=== PATIENT | female | born 1995 | race Caucasian/White ===

== ENCOUNTER 2017-12-31 14:56 | Emergency (ER) | payer OTHER, MEDICAID, SELFPAY ==
[2017-12-31 15:08] VITALS: BP 115/71; PULSE 104; RESP 16; TEMP 36.5; O2SAT 99; BMI 21.7
--- NOTE | 2017-12-31 17:18 | ED_ITS ---
HPI - URI/Sore Throat <Rosanna Barker PA-C - Last Filed: 12/31/17 22:39> General Chief Complaint: Upper Respiratory Symptoms Stated Complaint: COLD, SORE THROAT Time Seen by Provider: 12/31/17 16:22 Source: patient Mode of arrival: ambulatory Limitations: no limitations History of Present Illness HPI Narrative: Melanie is a 22-year-old female who comes into ED today due to 2 -3 day history of sore throat, painful to swallow. She also has chest congestion, wet cough, and generalized sinus pressure. She has not had fever. She has not had localized sinus pain or ear ache. No dyspnea or chest pain. No wheezing. Her infant daughter has been ill as well, and patient is concerned about strep throat. No recent travel. Related Data Allergies Allergy/AdvReac Type Severity Reaction Status Date / Time penicillin G [PENICILLIN G] Allergy Unknown Verified 12/31/17 15:08 Sulfa (Sulfonamide Allergy Unknown Verified 12/31/17 15:08 Antibiotics) [SULFA (SULFONAMIDE ANTIBIOTICS)] Review of Systems <Rosanna Barker PA-C - Last Filed: 12/31/17 22:39> Review of Systems All systems reviewed & are unremarkable except as noted in HPI and below Exam <Rosanna Barker PA-C - Last Filed: 12/31/17 22:39> Initial Vital Signs Initial Vital Signs: Vital Signs Temperature 97.7 F 12/31/17 15:08 Pulse Rate 104 H 12/31/17 15:08 Respiratory Rate 16 12/31/17 15:08 Blood Pressure 115/71 12/31/17 15:08 Pulse Oximetry 99 12/31/17 15:08 GENERAL APPEARANCE: Patient sitting comfortably, in no distress. HEAD: Mild generalized sinus tender EYES: PERRL, EOMI. EARS: Normal auditory canals, TMS intact with normal light reflexes. ORAL CAVITY: Normal oropharynx. THROAT: Mild erythema, no exudate NECK/THYROID: Neck supple, full range of motion, no cervical lymphadenopathy. LUNGS: Clear to auscultation bilaterally, occasional cough on exam. HEART: RRR without murmur, nl S1, S2, no S3 or S4. <Clifton Burris MD - Last Filed: 01/01/18 18:18> Initial Vital Signs Initial Vital Signs: Vital Signs Temperature 97.7 F 12/31/17 15:08 Pulse Rate 104 H 12/31/17 15:08 Respiratory Rate 16 12/31/17 15:08 Blood Pressure 115/71 12/31/17 15:08 Pulse Oximetry 99 12/31/17 15:08 Course <Rosanna Barker PA-C - Last Filed: 12/31/17 22:39> Orders Ordered: Discontinued Medications Acetaminophen (Tylenol) 650 mg PO NOW ONE Stop: 12/31/17 17:57 Last Admin: 12/31/17 18:17 Dose: 650 mg Ibuprofen (Advil) 800 mg PO NOW ONE Stop: 12/31/17 18:56 Last Admin: 12/31/17 19:03 Dose: 800 mg Lidocaine HCl (Viscous Lidocaine 2%) 15 ml PO NOW ONE Stop: 12/31/17 17:57 Last Admin: 12/31/17 18:17 Dose: 15 ml Vital Signs - 8 hr 12/31/17 15:08 12/31/17 17:30 12/31/17 20:49 Temperature 97.7 F Pulse Rate 104 H 87 102 H Respiratory Rate 16 16 18 Blood Pressure 115/71 Blood Pressure [Right Arm] 100/55 L 112/80 Pulse Oximetry 99 99 98 <Clifton Burris MD - Last Filed: 01/01/18 18:18> Orders Ordered: Discontinued Medications Acetaminophen (Tylenol) 650 mg PO NOW ONE Stop: 12/31/17 17:57 Last Admin: 12/31/17 18:17 Dose: 650 mg Ibuprofen (Advil) 800 mg PO NOW ONE Stop: 12/31/17 18:56 Last Admin: 12/31/17 19:03 Dose: 800 mg Lidocaine HCl (Viscous Lidocaine 2%) 15 ml PO NOW ONE Stop: 12/31/17 17:57 Last Admin: 12/31/17 18:17 Dose: 15 ml Vital Signs - 8 hr 12/31/17 15:08 12/31/17 17:30 12/31/17 20:49 Temperature 97.7 F Pulse Rate 104 H 87 102 H Respiratory Rate 16 16 18 Blood Pressure 115/71 Blood Pressure [Right Arm] 100/55 L 112/80 Pulse Oximetry 99 99 98 MDM - URI/Sore Throat <Rosanna Barker PA-C - Last Filed: 12/31/17 22:39> Lab Data Rapid strep test negative Discharge Plan Departure Patient Disposition: Home, Self-Care Clinical Impression: Upper respiratory infection Discharge Date/Time: 12/31/17 20:40 Interventions: ED Discharge Assessment Last Done: 12/31/17 20:40 Instructions: DI for Viral Upper Respiratory Infection -- Adult Activity Restrictions/Additional Instructions: Please continue to take ibuprofen for your sore throat since this seems to be helping much more than Tylenol. This is safe when . Your infection is most likely due to a virus, and typically these take about 10 days or so to fully resolved. You should see your PCP if you are not improving, or if you are feeling worse, and of course follow up here as we talked about if any acute symptoms. Referrals: Shellie Degroot MD [Primary Care Provider] - <Clifton Burris MD - Last Filed: 01/01/18 18:18> Cosign ED Attending Cheliature Attestation: I was available in the emergency department to answer questions and assist if needed. I agree with the document content and management plan.
[2017-12-31 17:30] VITALS: BP 100/55; PULSE 87; RESP 16; O2SAT 99
[2017-12-31] MEDS: LIDOCAINE VISCOUS 2% 15 ML SOLUTION PO (18:17)
[2017-12-31] MEDS: ACETAMINOPHEN 325 MG TABLET 650 MG PO (18:17)
[2017-12-31] MEDS: IBUPROFEN 400 MG TABLET 800 MG PO (19:03)
--- NOTE | 2017-12-31 19:26 | PC.NURSE ---
Intruduced myself and explained to mom the importance of . Mom receptive and friendly, no further needs at present.
[2017-12-31 20:49] VITALS: BP 112/80; PULSE 102; RESP 18; O2SAT 98
== END 2017-12-31 20:40 | disposition home or self-care (01) ==
PROVIDERS: Emergency Provider Internal Medicine; Family Provider Family Medicine; PCP Family Medicine
DX: J06.9 Acute upper respiratory infection, unspecified (principal)
CPT/HCPCS: 87880; 99283

== ENCOUNTER 2018-11-14 07:28 | Emergency (ER) | payer OTHER, MEDICAID, SELFPAY ==
[2018-11-14 07:44] VITALS: BP 124/71; PULSE 97; RESP 16; TEMP 36.4; O2SAT 100
--- NOTE | 2018-11-14 09:12 | ED.URI ---
HPI - URI/Sore Throat General Chief Complaint: Nasal Problem Stated Complaint: Face hurts Time Seen by Provider: 11/14/18 09:05 Source: patient Mode of arrival: ambulatory Limitations: no limitations History of Present Illness HPI Narrative: Patient is a 23-year-old female who presents with upper respiratory like symptoms ongoing for a week she has had some nasal congestion but worsening facial pain over last 2 days. A total of 10 days of symptoms. She does not know if she has had fever. She took ibuprofen yesterday without any relief. She has significant pressure on her face on her teeth radiating to her ear. No sore throat. No productive cough. MD Complaint: nasal congestion and sinus pain Onset (ago): day(s) (10) Duration: constant and progressively worsening Relieving factors: nothing Related Data Previous Rx's Medication Instructions Recorded doxycycline hyclate 100 mg PO BID #14 cap 11/14/18 Allergies Allergy/AdvReac Type Severity Reaction Status Date / Time penicillin G [PENICILLIN G] Allergy Unknown Verified 12/31/17 15:08 Sulfa (Sulfonamide Allergy Unknown Verified 12/31/17 15:08 Antibiotics) [SULFA (SULFONAMIDE ANTIBIOTICS)] Review of Systems Review of Systems ROS Unobtainable: All systems reviewed & are unremarkable except as noted in HPI and below Constitutional Denies chills, Denies fever(s), Denies lethargy and Denies weakness Eyes Denies change in vision, Denies eye discharge, Denies irritation and Denies loss of vision ENT Ears, Nose, Mouth, and Throat: Reports facial pain and Reports nasal congestion Cardiovascular Denies chest pain, Denies irregular heart rhythm, Denies lightheadedness, Denies palpitations, Denies dyspnea, Denies dyspnea on exertion and Denies orthopnea Respiratory Denies cough, Denies dyspnea, Denies dyspnea on exertion and Denies wheezing Gastrointestinal Gastrointestinal: Denies abdominal pain, Denies change in bowel habits, Denies diarrhea, Denies nausea and Denies vomiting Genitourinary Denies hematuria, Denies flank pain, Denies urinary incontinence and Denies urinary urgency Musculoskeletal Denies back pain, Denies muscle weakness, Denies numbness and Denies tingling Integumentary/Breasts Denies pruritus, Denies erythema, Denies rash and Denies wounds Neurologic Denies loss of vision, Denies numbness, Denies tingling and Denies weakness Endocrine Denies palpitations Allergic/Immunologic Denies wheezing [facility] Medical History ADHD (Acute) Social History Smoking Status: Current every day smoker Social History Smoking Status: Current every day smoker Exam Initial Vital Signs Initial Vital Signs: Vital Signs Temperature 97.5 F L 11/14/18 07:44 Pulse Rate 97 H 11/14/18 07:44 Respiratory Rate 16 11/14/18 07:44 Blood Pressure 124/71 11/14/18 07:44 Pulse Oximetry 100 11/14/18 07:44 GENERAL: Well-appearing, well-nourished and in no acute distress. HEENT: Head atraumatic,EOMI, pupils reactive, bilateral facial tenderness no small abscess CARDIOVASCULAR: Regular rate and rhythm without murmurs, rubs or gallops. RESPIRATORY: Breath sounds equal bilaterally, no wheezes rales or rhonchi. ABDOMEN: Soft, nontender. Normoactive bowel sounds all 4 quadrants. No guarding or rebound. EXTREMITIES: Normal range of motion, no clubbing or edema. Neurovascularly intact NEUROLOGICAL: Alert and oriented x4.Normal gait and speech. Cranial nerves II through XII grossly intact. SKIN: Warm, dry, no laceration, no petechiae, no rashes or lesions. Course Vital Signs - 8 hr 11/14/18 07:44 11/14/18 09:55 Temperature 97.5 F L Pulse Rate 97 H 91 H Respiratory Rate 16 17 Blood Pressure 124/71 118/76 Pulse Oximetry 100 98 MDM - URI/Sore Throat [facility] Narrative Medical decision making narrative: Patient has had symptoms of acute sinusitis for more than 10 days. Patient is allergic to penicillin and sulfa therefore doxycycline is prescribed. Discharge Plan Departure Patient Disposition: Home Clinical Impression: Sinusitis Qualifiers: Sinusitis location: maxillary Chronicity: acute Recurrence: non-recurrent Qualified Code(s): J01.00 - Acute maxillary sinusitis, unspecified Discharge Date/Time: 11/14/18 09:57 Interventions: ED Discharge Assessment Last Done: 11/14/18 09:55 Instructions: DI for Sinusitis Activity Restrictions/Additional Instructions: *You have been diagnosed with sinusitis *What to do: Increase fluid intake *Continue to take medications as directed Doxycycline 100 mg twice a day for 7 days *Follow up with your primary care provider in 2-3 days *Return to ER if you should have fever, worsening headache, worsening neck or any new, worsening or concerning symptoms Prescriptions: New doxycycline hyclate 100 mg capsule 100 mg PO BID Qty: 14 RF: 0 Referrals: Anuradha Lr ARNP [Primary Care Provider] -
--- NOTE | 2018-11-14 09:53 | PC.NURSE ---
Patient reports ten day history of sinus pain, congestion/drainage now with left face/mouth/teeth/cheek pain.
[2018-11-14 09:55] VITALS: BP 118/76; PULSE 91; RESP 17; O2SAT 98
== END 2018-11-14 09:57 | disposition home or self-care (01) ==
PROVIDERS: Emergency Provider Emergency Medicine; PCP Nurse Practitioner
DX: J01.00 Acute maxillary sinusitis, unspecified (principal)
CPT/HCPCS: 99282; 99283

== ENCOUNTER → 2019-04-14 19:17 | Outpatient (ROUT) | payer OTHER, MEDICAID, SELFPAY ==
[2019-04-14 21:09] LABS: Urine N gonorrhoeae NOT DETECTED
[2019-04-14 21:18] LABS: Urine Chlamydia NOT DETECTED
== END ==
PROVIDERS: PCP Nurse Practitioner; Visit Provider Obstetrics & Gynecology
DX: Z34.81 Encounter for supervision of other normal pregnancy, first trimester (principal); Z3A.09 9 weeks gestation of pregnancy
CPT/HCPCS: 87491; 87591

== ENCOUNTER → 2019-05-14 16:22 | Outpatient (CLI) | payer OTHER, MEDICAID, SELFPAY ==
[2019-05-14 17:24] LABS: Add Manual Diff / Slide Review NO; Basophils Absolute Auto 200 /uL (0-100); Basophils Percent Auto 1.2 % (0-2); Eosinophils Absolute Auto 100 /uL (0-450); Eosinophils Percent Auto 0.9 % (2-4); Hematocrit 37.3 % (36-46); Hemoglobin 12.7 g/dL (12.0-16.0); Lymphocytes Absolute Auto 2100 /uL (1100-4500); Lymphocytes Percent Auto 15.7 % (25-40); Mean Corpuscular Hemoglobin 30.6 PG (26-34); Monocytes Absolute Auto 1000 /uL (0-900); Monocytes Percent Auto 7.9 % (3-14); Neutrophils Absolute Auto 9800 /uL (1500-7000); Neutrophils Percent Auto 74.3 % (50-75); Platelet Count 254 X10^3/uL (150-400); Red Blood Cell Count 4.15 X10^6/uL (4.0-5.2); Red Cell Distribution Width 14.5 % (11.6-14.8); White Blood Cell Count 13.2 X10^3/uL (4.5-11.0)
[2019-05-14 18:05] LABS: Appearance Urine UA CLEAR; Bilirubin Urine UA NEGATIVE (NEGATIVE); Color Urine UA YELLOW; Glucose Urine UA NEGATIVE (Negative); Ketones Urine UA NEGATIVE (NEGATIVE); Leukocyte Esterase Urine UA NEGATIVE (NEGATIVE); Nitrite Urine UA NEGATIVE (Negative); Occult Blood Urine UA NEGATIVE (Negative); Protein Urine UA NEGATIVE (Negative); Urobilinogen Urine UA 0.2 E.U./dL (0.2)
[2019-05-14 18:19] LABS: pH Urine UA 5.5 (4.5-8.0)
[2019-05-14 18:46] LABS: Hepatitis B Surface Antigen NEGATIVE s/c (NEGATIVE)
[2019-05-14 19:07] LABS: HIV 1 & 2 Ab/Ag 4th Gen Combo NEGATIVE (NEGATIVE); Hep C Virus Ab w/Reflex Quant NEGATIVE s/c (NEGATIVE)
[2019-05-17 20:47] LABS: RPR Screen Nonreactive (Nonreactive)
== END ==
PROVIDERS: PCP Nurse Practitioner; Visit Provider Obstetrics & Gynecology
DX: Z34.81 Encounter for supervision of other normal pregnancy, first trimester (principal)
CPT/HCPCS: 36415; 80055; 81003; 86787; 86803; 86850; 86900; 86901; 87086; 87389

== ENCOUNTER → 2019-06-11 13:32 | Outpatient (CLI) | payer OTHER, MEDICAID, SELFPAY ==
[2019-06-15 21:04] LABS: AFP, Serum 41.7 ng/mL; Brief History NTD NG; Calc Gestational Age 17.1; Cigarette Smoker NO; Donated Egg NOT GIVEN; Donor Egg Age NOT GIVEN; Estriol, Free 1.21 ng/mL; Inhibin A, Dimeric 127 pg/mL; Maternal Weight 155 lbs; Number of Fetuses NOT GIVEN; Previous Pregnancy Down Syndro NOT GIVEN; hCG, MoM 0.77; hCG, Serum 20.8 IU/mL
== END ==
PROVIDERS: PCP Nurse Practitioner; Visit Provider Obstetrics & Gynecology
DX: Z34.02 Encounter for supervision of normal first pregnancy, second trimester (principal)
CPT/HCPCS: 36415; 82105; 82677; 84702; 86336

== ENCOUNTER → 2019-07-28 09:30 | Outpatient (CLI) | payer OTHER, MEDICAID, SELFPAY ==
--- NOTE | 2019-07-28 09:32 | DI.US.S_ITS ---
PROCEDURE: US OB >= 14 WEEKS FETUS INDICATIONS: ANATOMY OUTSIDE/PRIOR DATING DATA: Last menstrual period (LMP): 02/12/19. LMP-based estimated date of delivery (TESSY): 11/18/19. First dating scan (date and location): 03/26/19, by Dr. Salmeron. Estimated date of delivery (TESSY) from first dating scan: 11/13/19, by Dr. Salmeron. TECHNIQUE: Real-time scanning was performed of the fetus, with image documentation and biometric measurements. Endovaginal scanning: Not needed for this study COMPARISON: [facility], , OB >= 14 WEEKS FETUS, 04/14/2019, 16:41. FINDINGS: General: A single living intrauterine gestation is present. Presentation: Breech. Placenta: Placental position is posterior, without previa. Amniotic fluid index: 13.7 cm, normal range is 5-24 cm. heart rate: 157 beats per minute. Maternal cervical canal: 3.7 cm long. Normal lower limit is 2.5 cm. biometrics: Biparietal diameter: 6.0 cm, 24 weeks 2 days Head circumference: 23.3 cm, 25 weeks 2 days Abdominal circumference: 22.0 cm, 26 weeks 3 days Femur length: 4.6 cm, 25 weeks 3 days Estimated gestational age from initial scan: 24 weeks 4 days Composite gestational age from present scan: 25 weeks 4 days Estimated weight and percentile: 861 g, 91st percentile Measurement variability for biometric dating: +/- 7 days from 14 weeks to 15 weeks 6 days gestation, +/- 10 days from 16 weeks to 21 weeks 6 days gestation, +/- 2 weeks from 22 weeks to 27 weeks 6 days gestation, +/- 3 weeks for 28 weeks gestation or later. weight reference: 4500 g or EFW >90/95% is considered macrosomia or large for gestational age. EFW <10% is small for gestational age. EFW 5% or less is considered intra-uterine growth restriction. Anatomic survey: Neuro: Ventricles are non-dilated at less than 10 mm. Cisterna magna is normal at 3-11 mm. Cerebellum is normal in size and morphology. Nuchal skin fold: Normal at less than 6 mm between 14-21 weeks gestational age. Face: Nose and lips, facial profile are normal. Spine: No evidence for spina bifida. Heart: 4-chambered heart is present, with normal ventricular outflow tracts. Diaphragm: Diaphragm is intact. Stomach: Left-sided stomach is present. Kidneys: No hydronephrosis. Normal is less than 5 mm in 2nd trimester, less than 7 mm in 3rd trimester. Cord: 3-vessel cord has orthotopic insertion. Bladder: Normal in size. Extremities: All 4 extremities identified. IMPRESSION: Breech presentation, no significant anomaly found, appropriate interval growth. The delivery date is projected to be centered on 11/13/19 based on the first OB ultrasound performed by Dr. Salmeron. Dictated by: Reg Carroll M.D. on 07/28/2019 at 12:09 Approved by: Reg Carroll M.D. on 07/28/2019 at 12:12
== END ==
PROVIDERS: PCP Nurse Practitioner; Visit Provider Obstetrics & Gynecology
DX: Z36.89 Encounter for other specified antenatal screening (principal); Z3A.25 25 weeks gestation of pregnancy
CPT/HCPCS: 76811

== ENCOUNTER 2019-08-26 14:35 | Outpatient (CLI) | payer OTHER, MEDICAID, SELFPAY | END 2019-08-26 16:05 | disposition home or self-care (01) | LOC: LABOR 16:05 → OB 08-27 08:44 | PROVIDERS: PCP Nurse Practitioner; Referring Provider Obstetrics & Gynecology; Visit Provider Obstetrics & Gynecology | DX: O42.90 Premature rupture of membranes, unspecified as to length of time between rupture and onset of labor, unspecified weeks of gestation (principal); O26.23 Pregnancy care for patient with recurrent pregnancy loss, third trimester; R10.2 Pelvic and perineal pain; Z3A.28 28 weeks gestation of pregnancy | CPT/HCPCS: 59025; 84112; G0378; G0379 ==

== ENCOUNTER 2019-09-01 14:44 | Outpatient (CLI) | payer BC, OTHER, MEDICAID, SELFPAY ==
--- NOTE | 2019-09-01 21:23 | PM.OBTRLD ---
Visit Information Visit Information Date of evaluation: 09/01/19 Primary OB Provider: Cindy Reyes Reason for Evaluation: Yes non-stress test Comments/Additional reasons for admission: Patient is a @28+6 presenting for eval from clinic for elevated FHR to 170s in setting of movement, to confirm prolonge accels vs. tachycardia. Otherwise feeling well with no OB complaints. PFSH Surgical History (Updated 04/14/19 @ 17:10 by Cindy Reyes MD) H/O umbilical hernia repair (Acute) History of appendectomy (Acute) Family History (Updated 04/27/19 @ 11:58 by Jade Shepherd RN) Mother Hypertension Kidney disease Stomach ulcer Sister Hyperthyroidism Hypertension Grandmother Cancer Kidney disease Father Liver disease Family/Other Depression Bipolar 1 disorder Social History Smoking Status: Current every day smoker Evaluation Evaluation Baseline heart rate: 140 Variability: Average (6-10) monitor accelerations: Present monitor decelerations: Absent Diagnosis, Plan/Disposition Plan/Disposition Plan: Cat 1 reactive NST, patient discharged home with precautions. OB Disposition: home
== END 2019-09-01 15:30 | disposition home or self-care (01) ==
LOC: LABOR 15:32 → OB 09-02 11:27
PROVIDERS: PCP Nurse Practitioner; Referring Provider Obstetrics & Gynecology; Visit Provider Obstetrics & Gynecology
DX: O36.8330 Maternal care for abnormalities of the fetal heart rate or rhythm, third trimester, not applicable or unspecified (principal); O26.23 Pregnancy care for patient with recurrent pregnancy loss, third trimester; Z3A.28 28 weeks gestation of pregnancy
CPT/HCPCS: 59025; G0378; G0379

== ENCOUNTER → 2019-09-15 15:27 | Outpatient (CLI) | payer BC, OTHER, MEDICAID, SELFPAY ==
[2019-09-15 16:47] LABS: Hematocrit 33.1 % (36-46); Hemoglobin 11.2 g/dL (12.0-16.0)
[2019-09-15 17:25] LABS: GTT (PREG) 1 Hour PP 50gm Dose 93 mg/dL (76-139)
[2019-09-15 18:50] LABS: Influenza A - CEPHEID Flu A NEGATIVE (NEGATIVE); Influenza B - CEPHEID Flu B NEGATIVE (NEGATIVE)
[2019-09-22 13:36] LABS: COVID19 Sendout Not Detected (Not Detected)
== END ==
PROVIDERS: Nurse Practitioner; PCP Nurse Practitioner; Referring Provider Obstetrics & Gynecology; Visit Provider Obstetrics & Gynecology
DX: Z34.82 Encounter for supervision of other normal pregnancy, second trimester (principal); R68.89 Other general symptoms and signs; Z3A.26 26 weeks gestation of pregnancy
CPT/HCPCS: 36415; 82950; 85014; 85018; 87502; 87635

== ENCOUNTER → 2019-10-20 11:45 | Outpatient (CLI) | payer OTHER, MEDICAID, SELFPAY ==
[2019-10-21 11:08] LABS: Strep Grp B PCR NEG for Grp B Strep
== END ==
PROVIDERS: PCP Nurse Practitioner; Visit Provider Obstetrics & Gynecology
DX: Z34.03 Encounter for supervision of normal first pregnancy, third trimester (principal); Z3A.35 35 weeks gestation of pregnancy
CPT/HCPCS: 87653

== ENCOUNTER → 2019-10-20 12:00 | Outpatient (CLI) | payer OTHER, MEDICAID, SELFPAY ==
[2019-10-20 13:13] LABS: Add Manual Diff / Slide Review NO; Basophils Absolute Auto 100 /uL (0-100); Basophils Percent Auto 0.8 % (0-2); Eosinophils Absolute Auto 100 /uL (0-450); Eosinophils Percent Auto 0.8 % (2-4); Lymphocytes Absolute Auto 1800 /uL (1100-4500); Lymphocytes Percent Auto 13.3 % (25-40); Mean Corpuscular HGB Conc 34.2 % (30-36); Mean Corpuscular Hemoglobin 31.5 PG (26-34); Monocytes Absolute Auto 1100 /uL (0-900); Monocytes Percent Auto 8.3 % (3-14); Neutrophils Absolute Auto 10200 /uL (1500-7000); Neutrophils Percent Auto 76.8 % (50-75); Platelet Count 203 X10^3/uL (150-400); Red Cell Distribution Width 13.6 % (11.6-14.8); White Blood Cell Count 13.3 X10^3/uL (4.5-11.0)
[2019-10-20 13:20] LABS: Aspartate Aminotransferase 34 IU/L (14-36); BUN Creatinine Ratio 10.9 (6-22); Blood Urea Nitrogen 5 mg/dL (7-17); Estimated Glomerular Filt Rate > 60.0 mL/min (>60); Uric Acid 4.4 mg/dL (2.5-6.2)
[2019-10-20 15:55] LABS: Creatinine Urine Random 90.6 mg/dL; Protein (Total) Urine Random 10 mg/dL (0-12); Protein Creatinine Ratio Urine 0.11 GRAM/24H
== END ==
PROVIDERS: PCP Nurse Practitioner; Referring Provider Obstetrics & Gynecology; Visit Provider Obstetrics & Gynecology
DX: Z34.03 Encounter for supervision of normal first pregnancy, third trimester (principal); Z3A.35 35 weeks gestation of pregnancy
CPT/HCPCS: 36415; 82570; 84156; 84450; 84550; 85025; 87653

== ENCOUNTER 2019-11-17 01:30 | Inpatient (IN) | payer OTHER, MEDICAID, SELFPAY ==
[2019-11-17] MEDS: LACTATED RINGERS 1,000 ML 100 ML IV ×2 (02:15→04:15)
[2019-11-17] MEDS: fentaNYL 100 MCG/2 ML INJ 50 MCG IV ×2 (02:15→02:35)
[2019-11-17 02:16] VITALS: BP 111/77
[2019-11-17 02:23] LABS: Add Manual Diff / Slide Review NO; Basophils Absolute Auto 100 /uL (0-100); Basophils Percent Auto 0.6 % (0-2); Eosinophils Absolute Auto 200 /uL (0-450); Eosinophils Percent Auto 1.1 % (2-4); Hemoglobin 12.7 g/dL (12.0-16.0); Lymphocytes Absolute Auto 2400 /uL (1100-4500); Lymphocytes Percent Auto 15.8 % (25-40); Mean Corpuscular HGB Conc 33.3 % (30-36); Mean Corpuscular Hemoglobin 30.7 PG (26-34); Mean Corpuscular Volume 92.3 fL (80-100); Monocytes Absolute Auto 1400 /uL (0-900); Monocytes Percent Auto 9.1 % (3-14); Neutrophils Absolute Auto 11100 /uL (1500-7000); Neutrophils Percent Auto 73.4 % (50-75); Platelet Count 195 X10^3/uL (150-400); Red Blood Cell Count 4.12 X10^6/uL (4.0-5.2); Red Cell Distribution Width 14.4 % (11.6-14.8); White Blood Cell Count 15.1 X10^3/uL (4.5-11.0)
[2019-11-17 03:34] LABS: COVID19 -Nasal RAPID Negative (Negative)
--- NOTE | 2019-11-17 07:25 | P.HPOB_ITS ---
OB HPI Date/Time Date of admission: 11/17/19 Date Patient Seen: 11/17/19 Time Patient Seen: 07:20 History of Present Condition Chief complaint: evaluation of labor : 4 Para: 1 Estimated Date of Delivery: 11/18/19 Estimated Gestational Age (weeks): 39 Narrative: Melanie Villasenor is a 24 year old @39+6 admitted in early labor and making spontaneous change. She reports no VB or LOF, reports baby was moving well, and denies BEASLEY, visual changes, SOB, fevers, chills, or any other complaints at admission. She has had an uncomplicated , though there was early concern for posterior placenta previa that resolved in the second trimester. She has a history of 41 week and is proven to 8#4, with no other complications during that labor and delivery. She has a history of early SAB and 13 week IAB prior to that delivery, both of which were uncomplicated. Her surgical history is significant for appendectomy. She denies any other contributory medical, carbon rod inserter, or family history. History of Present care: good care Dating criteria: LMP confirmed by 1st trimester US Ultrasounds: normal 1st trimester US and normal mid trimester US Preadmission Labs Blood type: A (+) positive -: Antibody screen: negative, GBS status: negative, HBsAG: negative, HIV: negative and RPR/VDLR: negative -: Chlamydia screen: not detected and Gonorrhea screen: not detected -: Rubella: immune and Varicella: immune Quad screen: Normal 1 hr GTT: 93 Prior (ies) History: 07/14: 8 week SAB 07/16: 13 week IAB 08/2017: , 41 weeks, 8#4, female, otherwise uncomplicated Evaluation Evaluation Baseline heart rate: 135 Variability: Moderate (11-25) monitor accelerations: Present monitor decelerations: Absent Category of Tracing: I Cervical dilation (cm): 7 Cervical effacement (%): 100 station: -1 Laboratory results: Laboratory Tests 11/17/19 11/17/19 11/17/19 01:55 01:55 02:30 WBC 15.1 H RBC 4.12 Hgb 12.7 Hct 38.0 MCV 92.3 MCH 30.7 MCHC 33.3 RDW 14.4 Plt Count 195 Neut % (Auto) 73.4 Lymph % (Auto) 15.8 L [place] % (Auto) 9.1 Eos % (Auto) 1.1 L Baso % (Auto) 0.6 Neut # (Auto) 19226 H Lymph # (Auto) 2400 [place] # (Auto) 1400 H Eos # (Auto) 200 Baso # (Auto) 100 COVID-19 PCR Negative Blood Type A Positive Antibody Screen Negative PFSH Medical History ADHD (Acute) Anxiety (Acute) Bipolar 1 disorder (Acute) Depression (Acute) Eczema (Acute) Hx of migraines (Acute) Miscarriage (Acute) PTSD (post-traumatic stress disorder) (Acute) Smoking (Acute) Stomach ulcer (Acute) Vaginal delivery (Acute) Surgical History H/O umbilical hernia repair (Acute) History of appendectomy (Acute) Family History Mother Hypertension Kidney disease Stomach ulcer Sister Hyperthyroidism Hypertension Grandmother Cancer Kidney disease Father Liver disease Family/Other Depression Bipolar 1 disorder Social History Smoking Status: Former smoker Meds Home Medications and Allergies Home Medications Medication Instructions Recorded Confirmed Type prenat.vits,jonny,[id number] 1 tab PO DAILY 04/08/19 10/20/19 History Allergies Allergy/AdvReac Type Severity Reaction Status Date / Time penicillin G [PENICILLIN G] Allergy Severe Anaphylaxis Verified 10/20/19 11:36 Sulfa (Sulfonamide Allergy Severe Anaphylaxis Verified 10/20/19 11:36 Antibiotics) [SULFA (SULFONAMIDE ANTIBIOTICS)] Review of Systems Constitutional Constitutional: Reports system reviewed and no additional complaints, except as documented Cardiovascular Cardiovascular: Reports system reviewed; no additional complaints, except as documented Gastrointestinal Gastrointestinal: Reports system reviewed and no additional complaints, except as documented Genitourinary Genitourinary: Reports system reviewed and no additional complaints, except as documented Musculoskeletal Musculoskeletal: Reports system reviewed; no additional complaints, except as documented Neurologic Neurologic: Reports system reviewed and no additional complaints, except as documented Exam Vital Signs (past 8 hours): 106/57, HR 61, T 36.5C- 11/17/19 02:16 Blood Pressure 111/77 GI Palpation: soft and No tender Speculum Exam - Vagina: normal appearance of the vagina Manual OB Exam: dilated 7, effaced fully and station -1 Presentation: vertex Estimated Weight (lbs): 8 Amniotic Fluid: meconium (AROM at exam) Objective Labs Result Diagrams: 11/17/19 01:55 Labs: Laboratory Results - last 24 hr 11/17/19 11/17/19 11/17/19 01:55 01:55 02:30 WBC 15.1 H RBC 4.12 Hgb 12.7 Hct 38.0 MCV 92.3 MCH 30.7 MCHC 33.3 RDW 14.4 Plt Count 195 Neut % (Auto) 73.4 Lymph % (Auto) 15.8 L Cand[place] % (Auto) 9.1 Eos % (Auto) 1.1 L Baso % (Auto) 0.6 Neut # (Auto) 01173 H Lymph # (Auto) 2400 [place] # (Auto) 1400 H Eos # (Auto) 200 Baso # (Auto) 100 COVID-19 PCR Negative Blood Type A Positive Antibody Screen Negative Assessment and Plan Assessment and Plan Assessment and Plan narrative: This patient is admitted in active labor, has a functioning epidural, and was AROMed for meconium at 7cm, having progressed unaugmented. She will continue to be monitored, anticipating vaginal delivery. - cEFM, toco - Epidural in place - IV fluids per protocol Time Spent with Patient Total time spent with greater than 50% in coordination of care (as documented) at patient's floor/unit and/or counseling patient:: 25 - 35 minutes
[2019-11-17] MEDS: ONDANSETRON 4 MG/2 ML INJ IV (09:03)
--- NOTE | 2019-11-17 09:39 | PM.OBPRVD ---
Labor & Delivery Delivery date: 11/17/19 Intrapartal events: Acceleration and Deceleration Cervical ripening method: none Induction method: none Delivery augmentation: rupture of membranes Delivery monitor: external FHT and external uterine Route of delivery: L&D Laceration Description: Perineal - 1st Degree Estimated blood loss (mL): 200 Anesthesia type: Epidural Complications: Shoulder dystocia Narrative: This patient is a 24yo now P2 who presented in early labor in the early AM of 11/16. She progressed unaugmented, was AROMed for clear fluid at 7cm dilation, and progressed to fully dilated. After an approx. 15 minute second stage, she was delivered of a healthy baby boy with a delivery complicated by a shoulder dystocia. The head delivered from the TRISTIN presentation with the right shoulder up. Delivery of the shoulders achieved with Mary positioning, suprapubic pressure, and corkscrew maneuvers after the posterior arm was unable to be reached. Total interval between head and shoulders was approx. 70 seconds. There was no nuchal cord, no episiotomy was cut, and apgars were 8+9. Baby weighed 9#9 oz. The placenta delivered spontaneously without complications, and there were no other intrapartum or immediate complications. [place] Baby Carmine: gender: Male Presentation: vertex position: Left Occiput Transverse (TRISTIN) Placenta delivery description: Spontaneous cord vessel description: 3 Vessels score (1 min): 8 score (5 min): 9 Narrative: Slight right arm weakness after delivery, but full range of motion with no fractures. Plan for aftercare: Routine care.
[2019-11-17] MEDS: IBUPROFEN 600 MG TABLET PO ×3 (10:31→21:58)
[2019-11-17] MEDS: ACETAMINOPHEN 325 MG TABLET 650 MG PO (21:58)
[2019-11-18] MEDS: IBUPROFEN 600 MG TABLET PO (08:16)
[2019-11-18 10:35] VITALS: BP 115/54; PULSE 67; RESP 16; TEMP 36.6
--- NOTE | 2019-11-18 10:39 | PM.OBPN.1 ---
Subjective - OB Subjective Patient comments: no complaints, pain well controlled and tolerating diet baby status: doing well and nursing well feeding status: exclusively breast feeding Narrative: This patient is a 24yo now P2 PPD#1 s/p complicated by shoulder dystocia. The patient reports cramping abdominal pain especially after , but denies fevers, chills, nausea, vomiting, dysuria, or any other complaints. Lochia is mild to moderate, patient is ambulating, voiding, passing small amounts of flatus, and tolerating PO with no other complaints. We discussed the shoulder dystocia at length, including that risk factors include large fetus and rapid second stage but that more than half have no known risk factors. Patient is proven to a prior large baby, had no operative delivery, and was not diabetic. Baby is moving the right arm well today, and we discussed close follow up with her accounts receivable representative. We discussed that future vaginal delivery is not necessarily contraindicated, but that she should discuss the prior shoulder dystocia early in her next . The patient and her partner vocalized understanding of the above, and all questions were answered. I encouraged them to call or come in with further questions. Date Patient Seen: 11/18/19 Time Patient Seen: 10:39 Exam Vital Signs (past 8 hours): - 115/54, HR 67, T 97.9F 11/18/19 10:35 Temperature 97.9 F Pulse Rate 67 Respiratory Rate 16 Blood Pressure 115/54 L Resp Effort & Inspection: normal respiratory effort Auscultation: clear to auscultation bilaterally Cardio Rate: regular rate Rhythm: regular rhythm GI Palpation: soft and No tender Other: fundus firm, well below u Skin General: no rashes or lesions noted Extrem General: normal to inspection Objective Labs Result Diagrams: 11/17/19 01:55 Assessment & Plan Assessment and Plan (1) Vaginal delivery: Status: Acute Current Visit: Yes Plan day: 1 plan OB: routine care, discharge home and follow up 6 weeks Comments: This patient is doing well, meeting goals and stable for delivery. precautions were discussed, and the patient will follow up in 4-6 weeks. Time Spent With Patient Time: Total time spent is greater than 50% in coordination of care (as documented) at patient's floor/unit and/or counseling patient: Time with patient: 15-24 minutes
--- NOTE | 2019-11-18 10:47 | P.DS_ITS ---
Discharge Providers Provider Date of admission: 11/17/19 01:30 Discharge Date: 11/18/19 Primary care physician: JESSICA Malik Consults: 11/18/19 09:38 Consult to [employer] Supervisor Routine Comment: Discharge provider: Cindy Reyes MD Summary Hospital Course Date Patient Seen: 11/18/19 Time Patient Seen: 10:04 Procedures: vaginal delivery Hospital Course: This patient presented to the center in active labor, and progressed to fully dilated unaugmented. She was delivered of a healthy baby boy after a delivery complicated by shoulder dystocia, lasting just over a minute and requiring Mary, suprapubic pressure and corkscrew maneuvers. Baby weighed 9#9, apgars 8+9, and baby had no residual deficit in right arm movement by P PD#1. The course was uncomplicated, and the patient was discharged on PPD#1 with routine precautions. Peripartum Data Infant Delivery Method: Natural Vaginal Laceration description: None Procedures: vaginal delivery complications: none [place] 1: Gender: Male Disposition of : home Discharge Diagnosis (1) Vaginal delivery: Status: Acute Status at Discharge Cognitive/behavioral status at discharge: oriented Functional status at discharge: independent ambulation Overall status at discharge: patient is progressing back to baseline Time Spent with Patient Time attestation: Total time spent providing and/or coordinating discharge services: Time spent: Greater than 30 minutes Objective Labs Result Diagrams: 11/17/19 01:55 Exam Vital Signs (past 8 hours): - 11/18/19 10:35 Temperature 97.9 F Pulse Rate 67 Respiratory Rate 16 Blood Pressure 115/54 L Discharge Plan Discharge Plan Patient Disposition: Home Discharge orders & Medications Prescriptions: Continued prenat.vits,jonny,[id number] Tablet 1 tab PO DAILY RF: 0 Follow up/Referrals: Anuradha Lr ARNP [Primary Care Provider] - Cindy Reyes MD [Physician] - 1 Month (Appointment with Dr. Reyes on at 9:00 am for check.) Diet/Activity/Treatments Diet: Regular Activity: Nothing in the vagina for 6 weeks. Avoid heavy lifting for 6 weeks. If you develop increasing bleeding, fevers, chills, nausea, vomiting, headaches, visual changes, pain, or any other symptoms or concerns, call or come to the emergency room. Visit Report/Discharge Packet Instructions: DI for Labor and Delivery, Vaginal Visit Report Forms: Patient Portal/API, Stroke Signs & Symptoms Discharge Data Primary Care Provider: Anuradha Lr Discharges patient from system. Discharge Date/Time: 11/18/19 12:49
== END 2019-11-18 12:49 | disposition home or self-care (01) | DRG 807 ==
PROVIDERS: Admitting Provider Obstetrics & Gynecology; PCP Nurse Practitioner; Referring Provider Obstetrics & Gynecology; Visit Provider Obstetrics & Gynecology
DX: O70.0 First degree perineal laceration during delivery (principal); Z37.0 Single live birth; O77.0 Labor and delivery complicated by meconium in amniotic fluid; Z3A.39 39 weeks gestation of pregnancy; Z11.59 Encounter for screening for other viral diseases
CPT/HCPCS: 01967; 59050; 59400; 85025; 86850; 86900; 86901; 87635; G0379; J2405; J3010

== ENCOUNTER 2020-03-13 15:08 | Emergency (ER) | payer OTHER, MEDICAID, SELFPAY ==
[2020-03-13 15:12] VITALS: BP 166/110; PULSE 100; RESP 24; TEMP 36.5; O2SAT 100
--- NOTE | 2020-03-13 15:28 | PC.NURSE ---
Pt changed into safety scrubs with the assistance of this MICA PLATE LAYER. Pt is tearful and agitated at this time stating that being in a room by herself is going to make her want to hurt herself more. Pt stated that she wanted some noise in the room to help keep those thoughts away. KENDRICK Petty stated that the patient could have her phone plugged in to play music at this time. Pt was given warm blankets and water. Door is opened, lights are on, and patient is on her phone.
[2020-03-13 15:56] LABS: Add Manual Diff / Slide Review NO; Basophils Absolute Auto 100 /uL (0-100); Basophils Percent Auto 1.1 % (0-2); Eosinophils Absolute Auto 100 /uL (0-450); Eosinophils Percent Auto 0.7 % (2-4); Hemoglobin 13.1 g/dL (12.0-16.0); Lymphocytes Absolute Auto 1700 /uL (1100-4500); Lymphocytes Percent Auto 16.5 % (25-40); Mean Corpuscular HGB Conc 32.7 % (30-36); Mean Corpuscular Hemoglobin 30.3 PG (26-34); Mean Corpuscular Volume 92.4 fL (80-100); Monocytes Absolute Auto 700 /uL (0-900); Monocytes Percent Auto 7.1 % (3-14); Neutrophils Absolute Auto 7800 /uL (1500-7000); Neutrophils Percent Auto 74.6 % (50-75); Platelet Count 295 X10^3/uL (150-400); Red Blood Cell Count 4.33 X10^6/uL (4.0-5.2); Red Cell Distribution Width 14.5 % (11.6-14.8); White Blood Cell Count 10.5 X10^3/uL (4.5-11.0)
[2020-03-13 16:06] LABS: Acetaminophen < 10 ug/mL (10-30); Alanine Aminotransferase 15 IU/L (<35); Albumin 4.2 g/dL (3.5-5.0); Albumin Globulin Ratio 1.5 (1.0-2.8); Alkaline Phosphatase 54 U/L (38-126); Aspartate Aminotransferase 30 IU/L (14-36); BUN Creatinine Ratio 12.3 (6-22); Bilirubin Total 0.7 mg/dL (0.2-1.3); Blood Urea Nitrogen 9 mg/dL (7-17); Calcium 9.2 mg/dL (8.4-10.2); Carbon Dioxide 28 mmol/L (22-32); Chloride 105 mmol/L (98-107); Estimated Glomerular Filt Rate > 60.0 mL/min (>60); Ethanol (ETOH) < 10 mg/dL; Globulin 2.8 g/dL (1.7-4.1); Glucose 92 mg/dL (70-100); HEMOLYSIS 19 (0-50); Salicylate < 1.0 mg/dL (<20); Sodium 139 mmol/L (137-145)
--- NOTE | 2020-03-13 16:19 | PC.NURSE ---
Jimenez Rodriguez on Pt 1:1 @ 4180. Pt is calm quite and lying on courtney
[2020-03-13 16:36] LABS: Thyroid Stimulating Hormone 0.739 uIU/mL (0.47-4.68)
--- NOTE | 2020-03-13 16:46 | PC.NURSE ---
Provider in Rm with Pt
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
--- NOTE | 2020-03-13 17:02 | PC.NURSE ---
Urine sample collected. Given to Linda
[2020-03-13] MEDS: NICOTINE 14 PATCH 14 MG TOP (17:07)
--- NOTE | 2020-03-13 17:17 | PC.NURSE ---
Pt talking on phone and is becoming agitated. RN is in providing a Nicotine Patch. RN informed Pt if the phone is going to cause agitation then it will need to be taken away, Pt acknowledges Rn request about personal phone use
[2020-03-13 17:24] LABS: Bacteria Urine Occasional (0-1); Culture Indicated Urine Specimen Cultured; RBC Urine 1-5/HPF (0-5/HPF); Squamous Epithelial Cell Urine 1-5 /HPF (0-5/HPF); Transitional Epi Cells Urine 1-5/HPF (0-5/HPF); WBC Urine 1-5/HPF (0-5/HPF)
[2020-03-13 17:25] LABS: Ur Creatinine Normal (Normal); Ur Specific Gravity Normal (Normal); Urine Amphetamines Positive (Negative); Urine Cocaine Negative (Negative); Urine Methamphetamines Positive (Negative); Urine Opiates Negative (Negative); Urine Phencyclidine Negative (Negative); Urine THC Positive (Negative); Urine pH Normal (Normal)
[2020-03-13 17:26] LABS: Urine Barbiturates Negative (Negative); Urine Benzodiazepines Negative (Negative); Urine MDMA Positive (Negative); Urine Methadone Negative (Negative); Urine Oxycodone Negative (Negative); Urine Tricyclic Antidepressant Negative (Negative)
--- NOTE | 2020-03-13 18:24 | PC.NURSE ---
Pt c/o Headache, Nurse notified
[2020-03-13] MEDS: ACETAMINOPHEN 325 MG TABLET 975 MG PO (18:38)
[2020-03-13 19:06] LABS: COVID19 -Nasal RAPID Negative (Negative)
--- NOTE | 2020-03-13 20:43 | PC.NURSE ---
Pt on video call on tablet with DCR
[2020-03-13] MEDS: LORazepam 0.5 MG TABLET 1 MG PO (21:20)
[2020-03-13] MEDS: lamoTRIgine 25 MG CHEW TABLET PO (21:20)
[2020-03-14 06:47] VITALS: BP 104/64; PULSE 80; RESP 14; O2SAT 99
--- NOTE | 2020-03-14 07:23 | PC.NURSE ---
Jimenez Rodriguez on Pt 1:1 @ 0715. Pt is sleeping chest is rising and falling
--- NOTE | 2020-03-14 07:33 | PC.NURSE ---
received safe handoff from Ashley MARKS. Patient sleeping, door open. Respirations observed. Patient safety physician at doorway.
--- NOTE | 2020-03-14 08:38 | PC.NURSE ---
Patient awake, eating breakfast. Alert, appropriate, calm and cooperative.
--- NOTE | 2020-03-14 08:49 | PC.NURSE ---
Pt inquiring when ACTIVE DIRECTORY ADMINISTRATOR will be here and if she will be leaving this morning. Pt states I have to meet with my county commissioner this [place] [address] RN notified of Pt concerns about missing meeting with securities attorney and court
[2020-03-14 11:17] VITALS: BP 118/70; PULSE 84; O2SAT 99
--- NOTE | 2020-03-14 12:10 | PC.NURSE ---
PACS SPECIALIST in Rm with Pt
--- NOTE | 2020-03-14 12:18 | PC.NURSE ---
patient talking with social insurance specialist
--- NOTE | 2020-03-14 13:34 | CM.SWNOTE ---
MANAGER PRINTING assessment MANAGER PRINTING - Paleologist Assessment MANAGER PRINTING - Paleologist Assessment Start: 03/14/20 12:35 Freq: Status: Active Protocol: Document 03/14/20 12:36 MIRLANDE (Rec: 03/14/20 13:01 MIRLANDE [id number]) MANAGER PRINTING/Paleologist Assessment Time Spent with Patient Start date 03/14/20 Visit Start Time 12:00 End date 03/14/20 Visit End Time 12:35 Total time Care Management spent on 35 patient visit-in minutes Mental Health Screening Include Onset, Duration, Intensity Presenting Problem Patient presents to ED wanting help after suicide attempt in which she took a bunch of xanax. two days prior. Patient reports that patient's boyfriend caught her doing this and made her throw it up. Patient reports she decided to come to the ED the following day seeking help . 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 Patient states that the feelings of SI started roughly 1 week prior to attempt. Patient has dx of bipolar disorder since age 16, and stopped taking her medication during . Patient reports that she had no challenges with being off of her medication during , but feels that she is in need of getting back on it. Patient has been attempting to get psychiatric support for several weeks, but has been unable to secure an appt until recently. Patient reports she has an appt. with [facility] for a psych eval later this week. Patient Strengths Patient presents with strong insight into current experience and a clear, strong desire to feel better. Patient has two children, and highly values the care that she provides to her children. Current Behavioral Health Provider(s) Anuradha Lr- PCP Include Facility, Provider, Ph. # [facility]- Psych Psych. Hx Mental Health and Chemical Patient has a historical Dependency diagnosis of bipolar disorder. Patient states she has never had any feeling of SI before. Patient denies alcohol or substance use. Family Hx of Behavioral Abuse None reported. Psychiatric Hospitalizations (date(s)/ None. location) Psychosocial information & Support Patient is a 24 y/o mother of Systems two who lives with her two children and boyfriend. Patient has had a diagnosis of bipolar for roughly 8 years, and has successfully managed this via medication during this time. Patient currently works for [employer], and will be returning to work from maternity leave later this week. Patient reports that her boyfriend is a strong support and is able to take some time off of work after she leaves hospital. Patient also states that her work is very supportive of her. Patient describes her children as strong motivation as well. School/Work Patient works at [employer]. Legal Concerns Legal Matters - Outstanding Issues Patient reports she is currently in a custody mendoza for her oldest child. Mental Status Orientation (Person/Place/Time) Oriented x3 Stated Mood good Affect (Congruent with Mood?) Euthymic, normal range, congruent with mood Thought Content - Specify/Describe Patient reports no current Obsessions, Delusions, Hallucinations hallucinations, delusions, or obsessions. None are observed during assessment. Patient does report that she had experienced a hallucination when her son was 6 weeks old, but has not experienced anything since. Thought Processes (Sdcuqlv-Kqmcccqa-Ytin Logical-goal directed Dlnekghp-Kqylzfen-Mhpcwevaai- Ypjfzzgtdpvjho-Gmwgjuh-Mmzombfqzovt- Thought Blocking) Speech (Dhyjvr-Eiut-Ropsrbb-Rapid-Soft- Normal Loud-Pressured) Motor (Sgmdxu-Zaptalczu-Lior-Other) Normal Insight (Xncx-Arhy-Dhxh/Limited) Good` Judgement (Geeg-Tmhl-Bwig/Limited) Good Impulse Control (Adequate-Impaired) Adequate Memory (Qlevbukpg-Bgytcn-Vrwlmy, Intact x3 Impaired-Intact) Concentration (Intact-Impaired) Intact Attention (Intact-Impaired) Intact Behavior (Appropriate-Inappropriate) Appropriate Risk Assessment Suicidal Ideation (Plan) No Homicidal Ideation (Plan) No Comment Patient denies any current SI/ HI. Patient presented to ED after an attempted overdose on Xanax which was thwarted by her boyfriend. Patient states she wants help and denies any current SI, and was able to engage in a conversation surrounding safety planning. Patient was evaluated by [facility] and did not meet criteria for [facility], and patient does already have an outpatient follow up plan in place. Patient reports no guns or weapons in the home, and gives MANAGER PRINTING permission to contact patient's boyfriend for discussion of safety planning. Intervention Intervention MANAGER PRINTING meets with patient. Patient explains hx of post- depression, recent onset of suicidality, and states that she wants help. Patient reports no hx of suicide ideation and attempts, and informs MANAGER PRINTING that she has a psych assessment with [facility] later in week . Patient informs MANAGER PRINTING she believes being off of her bipolar medication is influencing her mental health; informs MANAGER PRINTING she was recently restarted on her bipolar medication and was given a dose in the ED. MANAGER PRINTING and patient discuss next steps. Patient states she would like a safety plan as she already has an appt. with a provider in place. Patient informs MANAGER PRINTING that her boyfriend is able to take a few days off of work once she returns home, and that he will likely hide her medication to help increase safety. Patient also states she will be returning to work in less than a week and says that this will help keep her focused and occupied. Patient also states her children had been staying with their grandparents, and that they will be returning home today. Patient and MANAGER PRINTING discuss inpatient treatment, and patient states that she does not feel like I'm that bad yet, and explains she would like the chance to regain stabilization in the outpatient setting before inpatient treatment. Plan RA Plan MANAGER PRINTING will contact patient's boyfriend to discuss potential safety plan and call [facility] to confirm appointment. MANAGER PRINTING will call [facility] to arrange for check-ins through time of appt. With support of boyfriend, appt. for psych assessment later in week, patient presents as safe for d/c to home with outpatient support. MANAGER PRINTING staffs this with Dr. Bell who indicates agreement with plan. SERA Javed
--- NOTE | 2020-03-14 13:35 | CM.SWNOTE ---
SHODDY MILL WORKER note Following assessment, SHODDY MILL WORKER calls patient's boyfriend, [facility], and [facility]. Patient's boyfriend and SHODDY MILL WORKER discuss patient's recent suicide attempt, and safety planning for potential return home. Patient's boyfriend states he will be taking some time off work to help make sure patient's transition to home is smooth and patient is safe while waiting for follow up appt. with [facility]. Patient's boyfriend reports he has already hidden the medication that is in the house and gone through the house for other potential dangerous objects. Patient's boyfriend expresses optimism that patient will be alright returning to home. SHODDY MILL WORKER calls [facility] [place] to confirm patient's appt time. Patient's appt. with [facility] is on 03/16 at 1pm. SHODDY MILL WORKER informs patient and Dr. Bell of this. SHODDY MILL WORKER contacts [facility] to arrange [facility] follow up calls for patient. [facility] will contact patient 03/15 and 03/16 via phone. SHODDY MILL WORKER updates patient and Dr. Bell. At this time, patient presents as safe for d/c to home with outpatient supports. SHODDY MILL WORKER asks Dr. Bell to place crisis line in patient's d/c notes. Pl: Patient to d/c to home with outpatient support. SERA Javed
--- NOTE | 2020-03-14 14:24 | PC.NURSE ---
Patient resting on stretcher. Denies needs, sitter at doorway.
[2020-03-14 14:30] VITALS: BP 114/81; PULSE 77; RESP 14; O2SAT 99
--- NOTE | 2020-03-14 14:30 | PC.NURSE ---
End Pt 1:1 @ [id number]
== END 2020-03-14 14:32 | disposition home or self-care (01) ==
PROVIDERS: Emergency Medicine; Nurse Practitioner Family; Emergency Provider Emergency Medicine; PCP Nurse Practitioner
DX: R45.851 Suicidal ideations (principal); F31.9 Bipolar disorder, unspecified
CPT/HCPCS: 36415; 80053; 80305; 80320; 80329; 81003; 81015; 81025; 82962; 84443; 85025; 87086; 87635; 99285; G0480

== ENCOUNTER → 2023-07-28 10:22 | Outpatient (CLI) | payer OTHER, MEDICAID, SELFPAY | PROVIDERS: PCP Nurse Practitioner; Visit Provider Physician Assistant Surgical | DX: R30.0 Dysuria (principal) | CPT/HCPCS: 81002; 87077; 87086; 87186 ==